=== PATIENT | male | born 1970 | race Caucasian/White ===

== ENCOUNTER 2017-01-25 20:29 | Emergency (ER) | payer OTHER, SELFPAY ==
[2017-01-25] MEDS ORDERED: Ketorolac Tromethamine 60 MG/2 ML VIAL ONE (21:42)
--- NOTE | 2017-01-25 21:56 | RAD ---
THREE VIEWS OF THE LUMBAR SPINE 01/25/2017 HISTORY: Low back pain. COMPARISON: None. FINDINGS: There is disk space narrowing, degenerative endplate change, and anterior osteophyte formation at T1 2-L1. Lumbar vertebral body height and alignment appear normal. The pedicles appear intact on front al imaging. No fracture noted. IMPRESSION: No acute osseous abnormality. POS: [facility]
== END 2017-01-25 21:55 ==
LOC: NAV ERS 20:29
DX: M54.5 Low back pain (principal); I25.10 Atherosclerotic heart disease of native coronary artery without angina pectoris; E11.9 Type 2 diabetes mellitus without complications; G62.9 Polyneuropathy, unspecified; F41.9 Anxiety disorder, unspecified; F17.220 Nicotine dependence, chewing tobacco, uncomplicated; Z79.899 Other long term (current) drug therapy
CPT/HCPCS: 72100; 96372; J1885

== ENCOUNTER 2017-06-14 19:20 | Emergency (ER) | payer SELFPAY ==
[2017-06-14] MEDS ORDERED: Ondansetron HCl/PF 4 MG/2 ML Vial ONE (19:47)
--- NOTE | 2017-06-14 20:42 | RAD ---
RIGHT SHOULDER TWO VIEWS: Indication: Trauma, pain. 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 No fracture or dislocation is seen. IMPRESSION: No acute osseous abnormality of the right shoulder. POS: [facility]
--- NOTE | 2017-06-14 20:42 | RAD ---
RIGHT WRIST THREE VIEWS: Indication: Trauma. FINDINGS: No fracture or dislocation. Carpal alignment is maintained. IMPRESSION: No acute osseous abnormality of the right wrist. POS: [facility]
--- NOTE | 2017-06-14 21:07 | RAD ---
RIGHT HAND THREE VIEWS: Indication: Trauma, pain. FINDINGS: No fracture or dislocation. No significant soft tissue abnormality. IMPRESSION: No acute osseous abnormality right hand. POS: [facility]
--- NOTE | 2017-06-14 21:09 | RAD ---
THREE VIEWS SACRUM AND COCCYX: Indication: Tailbone pain. Trauma. FINDINGS: There is no displaced sacral or coccygeal fracture. Degenerative changes seen in the symphysis pubis . Soft tissue calcifications overlie the lower pelvis at midline. IMPRESSION: No displaced fracture. POS: [facility]
--- NOTE | 2017-06-14 21:39 | RAD ---
TWO VIEW LUMBAR SPINE: Indication: Pain, trauma. FINDINGS: There is multilevel degenerative change of the lumbar spine without evidence of compression fracture or subluxation. IMPRESSION: No acute osseous abnormality. POS: [facility]
--- NOTE | 2017-06-14 22:03 | RAD ---
RIGHT FOREARM TWO VIEWS: Indication: Trauma, pain. FINDINGS: No fracture or dislocation of the right forearm. There is mild soft tissue irregularity dorsally at the proximal forearm. There is a punctate radiopaque density projecting at the medial dorsal aspect of the proximal forearm. This could related to a small embedded foreign body. IMPRESSION: 1. No acute fracture. 2. Punctate density of the proximal forearm as above. Correlate with physical exam to exclude possib ility of an embedded foreign body. POS: [facility]
== END 2017-06-14 20:45 | disposition home or self-care (01) ==
LOC: NAV ERS 19:20
DX: S30.0XXA Contusion of lower back and pelvis, initial encounter (principal); S50.11XA Contusion of right forearm, initial encounter; S40.011A Contusion of right shoulder, initial encounter; I10 Essential (primary) hypertension; E11.9 Type 2 diabetes mellitus without complications; F41.9 Anxiety disorder, unspecified; F17.220 Nicotine dependence, chewing tobacco, uncomplicated; W10.9XXA Fall (on) (from) unspecified stairs and steps, initial encounter
CPT/HCPCS: 72100; 72220; 96374; 96375; J2270; J2405

== ENCOUNTER 2017-08-21 21:28 | Emergency (ER) | payer SELFPAY ==
--- NOTE | 2017-08-21 22:58 | RAD ---
LEFT KNEE FOUR VIEW 08/21/17 HISTORY: Knee pain. COMPARISON: None. 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 There is approximately 2 mm of displacement of the byrd la of the bipartite patella. No significant joint effusion. No acute fracture or malalignment. 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 No acute abnormality. POS: [facility]
== END 2017-08-21 22:58 | disposition home or self-care (01) ==
LOC: NAV ERS 21:28
DX: S83.422A Sprain of lateral collateral ligament of left knee, initial encounter (principal); E11.649 Type 2 diabetes mellitus with hypoglycemia without coma; F41.9 Anxiety disorder, unspecified; F17.220 Nicotine dependence, chewing tobacco, uncomplicated; W22.8XXA Striking against or struck by other objects, initial encounter

== ENCOUNTER 2021-01-07 20:23 | Emergency (ER) | payer SELFPAY ==
[2021-01-07] MEDS ORDERED: Ketorolac Tromethamine 30 MG/ML VIAL ONE (20:59)
[2021-01-07] MEDS ORDERED: Sodium Chloride 0.9% 1,000 ML ONE (20:59)
[2021-01-07] MEDS ORDERED: diphenhydrAMINE 50 MG/ML VIAL ONE (20:59)
[2021-01-07 21:12] LABS: #Eosinphils 0.2 thou/uL (0.0-0.7); #Lymphocytes 1.5 thou/uL (1.20-3.40); #Monocytes 0.5 thou/uL (0.11-0.59); #Neutrophils 3.3 thou/uL (1.40-6.50); %Basophils 0.9 % (0.0-1.0); %Lymphocytes 27.2 % (21.0-51.0); %Monocytes 8.4 % (0.0-10.0); %Neutrophils 59.5 % (42.0-75.0); Hemoglobin 14.9 g/dL (14.0-18.0); Mean Corpuscular HGB CONC 30.8 g/dL (32.0-36.0); Mean Corpuscular Hemoglobin 26.3 pg (27.0-31.0); Mean Corpuscular Volume 85.4 fL (78.0-98.0); Mean Platelet Volume 7.3 fL (7.4-10.4); Platelet Count 243 thou/uL (130-400); RBC Distribution Width 12.8 % (11.5-14.5); Red Blood Cell (RBC) Count 5.67 mill/uL (4.70-6.10); White Blood Cell (WBC) Count 5.6 thou/uL (4.8-10.8)
[2021-01-07 21:29] LABS: ALT (SGPT) 38 U/L (8-55); AST (SGOT) 36 U/L (5-34); Albumin 4.2 g/dL (3.5-5.0); Alkaline Phosphatase 71 U/L (40-110); Anion Gap 15 mmol/L (10-20); BUN (Urea Nitrogen) 10 mg/dL (8.9-20.6); Bilirubin, Total 0.4 mg/dL (0.2-1.2); Calc. Creatinine Clearance 0 mL/min (70-130); Calcium 8.8 mg/dL (7.8-10.44); Carbon Dioxide 25 mmol/L (22-29); Chloride 102 mmol/L (98-107); Globulin 3.5 g/dL (2.4-3.5); Glucose 91 mg/dL (70-105); Potassium 3.7 mmol/L (3.5-5.1); Protein, Total 7.7 g/dL (6.0-8.3); Sodium 138 mmol/L (136-145)
== END 2021-01-08 06:25 | disposition home or self-care (01) ==
LOC: NAV ERS 20:23
DX: G44.209 Tension-type headache, unspecified, not intractable (principal); R07.89 Other chest pain; T78.40XA Allergy, unspecified, initial encounter; M54.5 Low back pain; I10 Essential (primary) hypertension; E11.40 Type 2 diabetes mellitus with diabetic neuropathy, unspecified; F17.220 Nicotine dependence, chewing tobacco, uncomplicated
CPT/HCPCS: 80053; 84484; 85025; 93005; 96374; 96375; J1200; J1885; J7050

== ENCOUNTER 2023-06-16 13:09 | Emergency (ER) | payer SELFPAY ==
[2023-06-16] MEDS ORDERED: Ketorolac Tromethamine 30 MG/ML VIAL ONE (14:02)
[2023-06-16] MEDS ORDERED: Orphenadrine Citrate 60 MG/2 ML VIAL ONE (14:30)
== END 2023-06-16 15:35 | disposition home or self-care (01) ==
LOC: NAV ERS 13:09
DX: M54.42 Lumbago with sciatica, left side (principal); I10 Essential (primary) hypertension; E11.9 Type 2 diabetes mellitus without complications; F17.220 Nicotine dependence, chewing tobacco, uncomplicated
CPT/HCPCS: 96372; 99283; J1885; J2360

== ENCOUNTER 2024-02-22 12:26 | Emergency (ER) | payer OTHER | END 2024-02-22 13:10 | disposition home or self-care (01) | LOC: NAV ERS 12:26 | DX: M70.22 Olecranon bursitis, left elbow (principal); M62.830 Muscle spasm of back; F17.220 Nicotine dependence, chewing tobacco, uncomplicated; I10 Essential (primary) hypertension | CPT/HCPCS: 99283 ==